=== PATIENT | male | born 1980 | race Caucasian/White ===

== ENCOUNTER 2021-03-05 18:50 | Emergency (ER) | payer MEDICARE, MEDICAID ==
[~2021-03-05] VITALS: Ht 190.5 cm; Wt 120.2 kg
--- NOTE | ~2021-03-05 | EMS ---
[facility] [address] [place] [address] EMS Patient Care Report Name: KERMIT SHEPARD Room: [facility]#: [id number] Admission: 03/05/21 Attend Phys: Discharge: 03/05/21 Date of : 82 Report #: [id number] THIS REPORT FOR: //name// Report Transmitted: 03/06/2021 08:02 EMS Care [place] Inc[place] [id number] @ 03/05/2021 18:09 Incident Location [address] [place] [address] Patient KERMIT SHEPARD Male, 40 Years 1980 Patient Address [address] [place] [address] Patient History Bipolar disorder, unspecified,Schizoaffective Disorder,Hypertension (HTN), Patient Allergies No known allergies, Patient Medications Benztropine, Clonidine, , Chief Complaint Swelling/Edema Disposition Transported No Lights/Mears Dispatch Reason Sick Person Transported To [facility] Narrative [facility] WAS DISPATCHED TO A RESIDENCE FOR A SICK. NEREIDA Leslie ARRIVED ON SCENE WITHOUT INCIDENT. THE PATIENT WHO GOES BY KERMIT WAS FOUND ALERT AND ORIENTED STANDING OUTSIDE. KERMIT SATED THAT HE HAD AN ABSCESS ON HIS LEFT CHEEK THAT STARTED THAT DAY BEFORE AND HAS GOTTEN WORSE TODAY. KERMIT DID NOT THINK HE [facility] [address] [place] [address] EMS Patient Care Report Name: KERMIT SHEPARD Room: [facility]#: [id number] Admission: 03/05/21 Attend Phys: Discharge: 03/05/21 Date of : 82 Report #: [id number] WAS BITTEN BY ANY BUG BUT WAS NOT FOR SURE. KERMIT WAS LAZARO TO WALK TO THE AMBULANCE AND CLIMB ONTO THE COT WHERE THE STRAPS ARE FASTENED AND THE RAILS PLACED IN THE UPRIGHT POSITION. [facility] BEGAN TRANSPORT. EN ROUTE KERMIT REST ON THE COT IN NO APPARENT DISTRESS. VITALS ARE TAKEN AND MONITORED MEDICAL HISTORY AND ALLERGIES ARE RECEIVED. [facility] WAS CONTACTED BY [facility] AND STATED THAT THEY WERE HIGH VOLUME. KERMIT WAS TOLD WHAT THAT MEANT AND WANTED TO DIVERT TO [facility]. [facility] REPORT WAS GIVEN TO [facility] WITHOUT INCIDENT. [facility] ARRIVED AT DESTINATION. PATIENT CARE AND REPORT IS GIVEN OT STAFF KERMIT IS ABLE TO WALK TO THE INTAKE ROOM IN TRIAGE. [facility] CLEAR. DONNA RIZZO, EMT-P Initial Vitals @18:18Pain: 2, @18:40Pain: 2, @18:20P: 91,R: 18,BP: 188/98, @18:41P: 82,R: 18,BP: 152/100, @18:20GCS: 15, @18:41GCS: 15, @18:16 Assessments @18:16MENTAL:SKIN:HEENT:LUNG SOUNDS:ABDOMEN:PELVIS//GI:EXTREMITIES:PULSE:NEURO: Impression Common Cold Timeline :,Call Received :09,Dispatch Notified 18:09,Psap Call 18:09,Dispatched 18:09,En Route 18:15,On Scene 18:16,At Patient 18:16,BP: / M,PULSE: ,RR: R,SPO2: Ox,ETCO2: ,BG: ,PAIN: ,GCS: , 18:18,BP: / M,PULSE: ,RR: R,SPO2: Ox,ETCO2: ,BG: ,PAIN: 2,GCS: , 18:20,BP: 188/98 M,PULSE: 91,RR: 18 R,SPO2: Ox,ETCO2: ,BG: ,PAIN: ,GCS: , 18:20,BP: / M,PULSE: ,RR: R,SPO2: Ox,ETCO2: ,BG: ,PAIN: ,GCS: 15, 18:23,Depart Scene 18:40,BP: / M,PULSE: ,RR: R,SPO2: Ox,ETCO2: ,BG: ,PAIN: 2,GCS: , 18:41,BP: 152/100 M,PULSE: 82,RR: 18 R,SPO2: Ox,ETCO2: ,BG: ,PAIN: ,GCS: , 18:41,BP: / M,PULSE: ,RR: R,SPO2: Ox,ETCO2: ,BG: ,PAIN: ,GCS: 15, 18:46,At Destination 18:58,[place] [address] EMS Patient Care Report Name: KERMIT SHEPARD [id number] Admission: 03/05/21 Attend Phys: Discharge: 03/05/21 Date of : 82 Report #: [id number] Disclaimer [email or web address] Copyright [employer] This EMS Care Summary contains data elements from the applicable legal record (which may be displayed differently). It is designed to provide pertinent information for the following purposes: continuity of care, clinical quality, and state data reporting. The complete legal record is available to ED staff and administrators of the receiving hospital in [employer]'s Patient Tracker. All data is provided "as is."
[2021-03-05] MEDS ORDERED: BENZTROPINE ME0.5 MG PO (19:14)
[2021-03-05] MEDS ORDERED: DEPAKOTE250 MG PO (19:14)
[2021-03-05] MEDS ORDERED: CLONIDINE HCL0.1 M1 PO (19:15)
[2021-03-05] MEDS ORDERED: HALDOL DEC100 MG/1 M IM (19:15)
[2021-03-05] MEDS ORDERED: CLEOCIN HCL300 MG PO (20:59)
[2021-03-05] MEDS ORDERED: IBUPROFEN 800800 M1 PO (20:59)
[2021-03-05 21:11] VITALS: BP 193/113
== END 2021-03-05 21:11 | disposition home or self-care (01) ==
LOC: M.ERS 18:50
DX: K04.7 Periapical abscess without sinus (principal); K02.9 Dental caries, unspecified; R22.0 Localized swelling, mass and lump, head